=== PATIENT | male | born 1980 | race Caucasian/White ===

== ENCOUNTER 2016-08-08 12:27 | Emergency (ER) | payer OTHER ==
[~2016-08-08] VITALS: Ht 188 cm; Wt 131.5 kg
--- NOTE | ~2016-08-08 | EXE ---
[facility] [place] [address] STRESS ECHOCARDIOGRAM Name: UZIEL ALEJANDRA Room #: JORDYN ChJoséMoreliaJosé#: [id number] Admission: 08/08/16 Attend Phys: Discharge: Date of : 76 Date of Service: 08/08/16 1457 Report #: [id number] THIS REPORT FOR: //name// Stress Echocardiography Ordering physician: Bere Casey Referring physician: Jessica Hernandez Kathleen L. [employer] Finishing Supervisor: Layal Lincoln Nurse: Lucy Kohler RN Indications/History: Chest pain. hx: Family history (Mom CABG age 42) BP: 129 / HR: 74bpm Height: 74in Weight: 289.4lb 88 Study data: Location: Echo laboratory. Routine. Informed consent was obtained. A baseline ECG was recorded. Treadmill exercise testing was performed using the Wes protocol. The patient exercised for 10 min 3 sec, to protocol stage 4, to a maximal work rate of 13.4mets. Exercise was terminated due to achievement of target heart rate and moderate fatigue. Transthoracic stress echocardiography. Image quality was adequate. There were no complications. Hemodynamic findings + +---+ + + !Stage !HR !BP (mmHg) !Symptoms ! + +---+ + + !Baseline !74 !129/88 (102) !None ! + +---+ + + !Stage 1 !111!130/84 (99) ! ! + +---+ + + !Stage 2 !134!152/90 (111) ! ! + +---+ + + !Stage 3 !166! !Chest discomfort, 2/10! + +---+ + + !Stage 4 !181! ! ! + +---+ + + !Recovery; 1 min!153! ! ! [address] [address] STRESS ECHOCARDIOGRAM Name: UZIEL ALEJANDRA Room #: JORDYN Lange#: [id number] Admission: 08/08/16 Attend Phys: Discharge: Date of : 76 Date of Service: 08/08/16 1455 Report #: [id number] + +---+ + + !Recovery; 2 min!129! ! ! + +---+ + + !Recovery; 3 min!114!190/100 (130)! ! + +---+ + + !Recovery; 4 min!106! ! ! + +---+ + + !Recovery; 5 min!104!161/100 (120)! ! + +---+ + + !Recovery; 6 min!100!138/92 (107) !Chest discomfort ! + +---+ + + !Recovery; 7 min!98 !140/100 (113)!Discomfort resolving ! + +---+ + + Max HR: 181bpm (99% max predicted). Max predicted HR: 182bpm.Target HR achieved. Heart rate response was normal. There was a normal resting blood pressure with an appropriate response to stress. The rate-pressure product for the peak heart rate and blood pressure was 31517mo Hg/min. No chest pain. ECG findings Baseline ECG: Normal. Stress ECG: There were no stress arrhythmias or conduction abnormalities. The stress ECG was negative for ischemia. Echo findings Baseline: LV size was normal. LV global systolic function was normal. The estimated LV ejection fraction was 65%. Normal wall motion; no LV regional wall motion abnormalities. Trivial MR, TR. Peak stress: LV size was reduced appropriately. LV global systolic function was vigorous. The estimated LV ejection fraction was 75%. Normal wall motion; no LV regional wall motion abnormalities. Summary Clinical response to exercise stress: non-ischemic. [facility] [address] [place] [address] STRESS ECHOCARDIOGRAM Name: NYUZIEL Room #: REG Anisa#: [id number] Admission: 08/08/16 Attend Phys: Discharge: Date of : 76 Date of Service: 08/08/16 1455 Report #: [id number] ECG response to exercise stress: non-ischemic. Echo response to exercise stress: non-ischemic. <ELECTRONICALLY SIGNED> By: Lamonte Marrero MD 08/08/16 1604 1455 1604 Lamonte Marrero MD /ponce
--- NOTE | ~2016-08-08 | EKG ---
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 : 1980 Requested By: Bere Casey Order Number: [id number] MD: Fernando Frias Measurements Intervals [place] Rate: 73 P: 60 WI: 151 QRS: -34 QRSD: 107 T: 31 QT: 386 QTc: 426 Interpretive Statements Sinus rhythm Left atrial enlargement Left axis deviation RSR' in V1 or V2, probably normal variant Baseline wander in lead(s) V2 No previous ECG available for comparison Electronically Signed On 08-08-2016 15:53:37 [employer] TECHNICIAN by Fernando Frias [email or web address] <ELECTRONICALLY SIGNED> By: Fernando Frias MD 08/08/16 1553 1233 1233 Fernando Frias MD /BRIANNE
[2016-08-08 13:18] LABS: ABSOLUTE NEUTROPHILS 4.3 thou/uL (1.4-8.2); BASOPHILS 1.3 % (0.0-2.0); EOSINOPHILS 1.9 % (0.0-3.0); HEMATOCRIT 43.8 % (42.0-52.0); LYMPHOCYTES 37.5 % (24.0-44.0); MCH 29.1 pg (26.0-34.0); MCHC 34.3 % (28.0-37.0); MCV 84.7 fL (80.0-100.0); MONOCYTES 5.8 % (1.0-8.0); PLATELET COUNT 240 thou/uL (150-400); POLYS 53.5 % (36.0-66.0); RBC 5.16 mil/uL (4.50-6.00); RDW 13.5 % (10.5-14.5); WBC 7.9 thou/uL (4.0-11.0)
[2016-08-08 13:20] LABS: MANUAL DIFF NO
[2016-08-08 13:25] LABS: ANION GAP 9 mmol/L (7-16); BUN 18 mg/dL (7-18); CALCIUM 9.4 mg/dL (8.5-10.1); CHLORIDE 103 mmol/L (98-107); CO2 26 mmol/L (21-32); GLUCOSE 90 mg/dL (70-99); POTASSIUM 3.9 mmol/L (3.5-5.1); SODIUM 138 mmol/L (136-145)
[2016-08-08 13:36] LABS: TROPONIN-I < 0.04 ng/mL (<0.04-0.07)
[2016-08-08 16:37] VITALS: BP 130/86
== END 2016-08-08 16:40 | disposition home or self-care (01) ==
LOC: ER 12:27
PROVIDERS: Emergency Medicine
DX: R07.89 Other chest pain (principal); Z91.040 Latex allergy status; F17.210 Nicotine dependence, cigarettes, uncomplicated; F10.99 Alcohol use, unspecified with unspecified alcohol-induced disorder

== ENCOUNTER → 2016-08-09 | Outpatient (CLI) | payer OTHER | LOC: CAT 14:30 | DX: R06.02 Shortness of breath (principal); R07.9 Chest pain, unspecified ==

== ENCOUNTER → 2021-06-01 | Outpatient (CLI) | payer OTHER | LOC: RAD 10:04 | DX: Z02.1 Encounter for pre-employment examination (principal) ==

== ENCOUNTER → 2021-07-10 | Outpatient (CLI) | payer OTHER | LOC: CAT 07:24 | PROVIDERS: ATTEND Internal Medicine | DX: Z13.6 Encounter for screening for cardiovascular disorders (principal); I25.10 Atherosclerotic heart disease of native coronary artery without angina pectoris; E78.00 Pure hypercholesterolemia, unspecified ==